=== PATIENT | female | born 1975 | race Caucasian/White ===

== ENCOUNTER 2021-04-10 07:31 | Emergency (ER) | payer MEDICAID, OTHER ==
[2021-04-10] MEDS ORDERED: levetiracetam inj 1,000 MG in normal saline 100ml IV soln 90 ML IV ONE (08:00)
== END 2021-04-10 08:28 | disposition left against medical advice (07) ==
LOC: ER 07:32
DX: R56.9 Unspecified convulsions (principal); Z72.89 Other problems related to lifestyle
CPT/HCPCS: 99283